=== PATIENT | male | born 1935 | race Caucasian/White ===

== ENCOUNTER 2020-05-21 03:15 | Inpatient (IN) | payer OTHER ==
[~2020-05-21] VITALS: Ht 170.2 cm; Wt 65.7 kg
[2020-05-21] MEDS ORDERED: methylPREDNISolone SOD SUCC 125 MG/2 ML VL IV ONE (04:00)
[2020-05-21 04:25] LABS: Basophils # (auto) 0 10 ^3/uL (0-0.2); Basophils % (auto) 0.8 % (0.0-2.0); Eosinophils # (auto) 0.1 10 ^3/uL (0-0.8); Eosinophils % (auto) 2.6 % (0.0-7.0); Hematocrit 37.1 % (41.0-53.0); Hemoglobin 12.5 g/dL (13.5-17.5); Lymphocytes # (auto) 1.7 10 ^3/uL (0.4-5.4); Mean Corpuscular Hemoglobin 31.7 pg (28.0-32.0); Mean Corpuscular Hgb Conc. 33.8 g/dL (32.0-36.0); Monocytes # (auto) 0.3 10 ^3/uL (0-1.3); Neutrophils # (auto) 2.2 10 ^3/uL (1.6-8.6); Neutrophils % (auto) 50.6 % (37.0-80.0); Nucleated Red Blood Cells % 0.1 %; Platelet Count (auto) 121 10^3/uL (140-450); Red Blood Cells 3.95 10^6/uL (4.5-5.90); Red Cell Distribution Width 13.6 % (11.8-14.3); White Blood Cell 4.3 10^3/uL (4.4-10.8)
[2020-05-21 04:49] LABS: INR 1.13 (0.9-1.15); Partial Thromboplastin Time 25.1 sec (23.0-31.2)
[2020-05-21 05:25] LABS: Bilirubin, Total 0.8 mg/dL (0.2-1.0); Calcium 8.7 mg/dL (8.5-10.1); Magnesium 2.4 mg/dL (1.6-2.6)
[2020-05-21 05:47] LABS: Potassium 4.1 mmol/L (3.5-5.1)
[2020-05-21 08:37] LABS: Urine Bacteria FEW /hpf (None Seen); Urine Blood TRACE /uL (Negative); Urine Mucus FEW (None Seen); Urine WBC 1 /hpf (0 - 3)
[2020-05-21 11:44] VITALS: BP 122/63
[2020-05-21] MEDS ORDERED: DOXYCYCLINE 100MG/250ML 250 ML IV ONE (12:45)
[2020-05-21] MEDS ORDERED: ALBUTEROL SULF HFA 90MCG INH 200DOSE IN SCH (14:00)
[2020-05-21] MEDS ORDERED: NITROGLYCERIN 0.4 MG SL TAB SL PRN (14:00)
[2020-05-21] MEDS ORDERED: ONDANSETRON HCL 4 MG/2 ML VIAL IV PRN (14:00)
[2020-05-21] MEDS ORDERED: MORPHINE SULF INJ 2 MG/ML SYRINGE 1ML IV PRN ×2 (14:00)
[2020-05-21] MEDS ORDERED: FUROSEMIDE 20 MG/2 ML VIAL IV ONE (14:00)
[2020-05-21] MEDS ORDERED: ACETAMINOPHEN 500 MG TAB PO PRN (14:00)
[2020-05-21] MEDS: DOXYCYCLINE 100MG/250ML 250 ML IV SCH (21:47)
[2020-05-21] MEDS: DOCUSATE SOD 100 MG CAP PO SCH (22:00)
[2020-05-21] MEDS ORDERED: BUDESONIDE (INHALATION) 180 MCG IH IN SCH (22:00)
[2020-05-22] VITALS (7 sets, daily range): BP systolic 105–144; BP diastolic 50–79
--- NOTE | 2020-05-22 00:38 | NUR ---
Telemetry admit from ER MENDELRICHIE admitted to Telemetry unit after SBAR received. Patient oriented lashonda RN, unit, room, bed, and unit policies regarding patient care and visiting hours. Patient now on continuous telemetry monitoring, tele box #63 and telemetry reading on arrival to unit is SR 69 bpm. Fall and safety precautions in place. Call light within reach and able to use. Patient placed on bedside oxygen 5 L NC, weighed by bedscale and encouraged to call if they need something. All questions and concerns addressed, patient verbalized understanding and in agreement. Will continue to monitor q1h and prn.
--- NOTE | 2020-05-22 02:00 | NUR ---
MED REC INCOMPLETION PATIENT UNABLE TO RECALL MEDICATION INFORMATION OF HOME MEDICATIONS. PATIENT STATES PHARMACY (SEE PREFERRED PHARMACY) HAS LIST OF PATIENT'S MEDICATION. WILL INFORM DAY SHIFT RN TO INQUIRE DURING OPERATING HOURS.
[2020-05-22 06:47] LABS: Basophils # (auto) 0 10 ^3/uL (0-0.2); Basophils % (auto) 0.2 % (0.0-2.0); Eosinophils # (auto) 0 10 ^3/uL (0-0.8); Eosinophils % (auto) 0.6 % (0.0-7.0); Hematocrit 30.5 % (41.0-53.0); Hemoglobin 10.4 g/dL (13.5-17.5); Lymphocytes % (auto) 30.4 % (10.0-50.0); Mean Corpuscular Hemoglobin 32.2 pg (28.0-32.0); Mean Corpuscular Hgb Conc. 34.3 g/dL (32.0-36.0); Mean Corpuscular Volume 93.8 fL (80.0-100.0); Monocytes # (auto) 0.4 10 ^3/uL (0-1.3); Monocytes % (auto) 6.9 % (0.0-12.0); Neutrophils % (auto) 61.9 % (37.0-80.0); Platelet Count (auto) 121 10^3/uL (140-450); Red Blood Cells 3.25 10^6/uL (4.5-5.90); Red Cell Distribution Width 13.4 % (11.8-14.3); White Blood Cell 6.4 10^3/uL (4.4-10.8)
[2020-05-22 07:08] LABS: Albumin 2.4 g/dL (3.4-5.0); BUN/Creatinine Ratio 25.5; Bilirubin, Total 0.4 mg/dL (0.2-1.0); Calcium 8.1 mg/dL (8.5-10.1); Potassium 4.1 mmol/L (3.5-5.1); Total Protein 6.6 g/dL (6.4-8.2)
[2020-05-22 07:28] LABS: CRP High Sensitivity 1.53 mg/dL (< 0.3)
[2020-05-22] MEDS: DOCUSATE SOD 100 MG CAP PO SCH ×2 (09:10→22:11)
[2020-05-22] MEDS: DexAMETHasone SOD PHOS 10MG/1ML VIAL INJ IV SCH ×2 (09:10→09:29)
[2020-05-22] MEDS: ENOXAPARIN SOD 40 MG/0.4 ML SYRINGE SC SCH (09:12)
[2020-05-22] MEDS: DOXYCYCLINE 100MG/250ML 250 ML IV SCH ×2 (09:14→22:11)
--- NOTE | 2020-05-22 09:15 | NUR ---
Patient ambulated to bathroom and back to bed. Scheduled medications given per order. Patient stable at this time.
--- NOTE | 2020-05-22 09:30 | NUR ---
Patient out-of-bed to chair. Patient stable.
[2020-05-22] MEDS ORDERED: ASCORBIC ACID 1,000 MG TAB PO SCH (10:00)
[2020-05-22] MEDS ORDERED: ZINC SULFATE 220mg CAP or TAB PO SCH (10:00)
[2020-05-22] MEDS ORDERED: CHOLECALCIFEROL (VITD3) 2,000 UNIT CAP PO SCH (10:00)
--- NOTE | 2020-05-22 10:15 | NUR ---
Patient sitting in chair at bedside with no complaint of pain or discomfort. Patient stable.
--- NOTE | 2020-05-22 10:41 | NUR ---
Nutrition Consult for constipation Resolved- pt reports BM today Est energy needs 1682-5450 kcal (25-30 kcal/kg BW 66.7kg) Est protein needs 53-67g (0.8-1g/kg BW 66.7kg) Will monitor and reassess prn. Addendum: 05/22/20 at [address] Amended: Links added.
--- NOTE | 2020-05-22 12:20 | NUR ---
Patient sitting in bed; eating dinner. No distress noted; denies any pain at this time. Patient stable.
[2020-05-22] MEDS: ALBUTEROL SULF 2.5 MG/0.5ML(0.5%) NEB SOLN NEB SCH ×2 (13:15→18:59)
--- NOTE | 2020-05-22 16:20 | NUR ---
Patient asleep with no distress noted at this time. Patient stable.
[2020-05-22] MEDS: FUROSEMIDE 20 MG/2 ML VIAL IV SCH (17:52)
--- NOTE | 2020-05-22 17:52 | NUR ---
Scheduled medications given per order. Patient eating dinner at this time. Patient stable.
[2020-05-22] MEDS ORDERED: TAMSULOSIN HYDROCHLORIDE 0.4 MG CAP PO SCH (18:00)
--- NOTE | 2020-05-22 19:00 | NUR ---
OPENING NOTE- NOC SHIFT RECEIVED REPORT FROM DAY SHIFT NURSE FLAKITO ROBERTS. PATIENT IS ALERT AND ORIENTED X4, ANSWERS IN COMPLETE SENTENCES AND MAKES APPROPRIATE EYE CONTACT. PATIENT IS IN BED, BED IS LOCKED AT LOWEST POSITION, BED RAILS UP X2 AND HEAD OF BED IS UP >30 DEGREES. BEDSIDE TABLE WITHIN REACH, CALL LIGHT WITHIN REACH. DISCUSSED POC WITH PATIENT AND INSTRUCTED PATIENT TO CALL PRN; PATIENT VERBALIZED UNDERSTANDING. PATIENT IS ON 4L NC SAT IS 92%. PATIENT STATES THAT HE IS UNCOMFORTABLE WITH PATIENT IN BED A BECAUSE HE IS LOUD AND STATES THAT HE HAS NOT BEEN ABLE TO SLEEP IN 48HRS. PATIENT REQUESTS TO BE TRANSFERRED TO A DIFFERENT ROOM; WILL REQUEST ROOM CHANGE WITH CHARGE NURSE.
--- NOTE | 2020-05-22 20:00 | NUR ---
PATIENT TRANSFERRED TO 276[facility] PATIENT WAS TRANSFERRED PER PATIENT REQUEST. CHARGE NURSE STANLEY ROBERTS IS AWARE. ALL BELONGINGS WITH PATIENT. PATIENT AMBULATED INDEPENDENTLY TO [facility]A; STEADY GAIT NOTED.
[2020-05-22] MEDS: POTASSIUM CHL 10 Meq TABLET PO SCH (22:11)
[2020-05-23] VITALS (9 sets, daily range): BP systolic 99–116; BP diastolic 37–71
--- NOTE | 2020-05-23 05:30 | NUR ---
PATIENT IN RESTROOM; AMBULATED INDEPENDENTLY, STEADY GAIT NOTED.
[2020-05-23] MEDS: FUROSEMIDE 20 MG/2 ML VIAL IV SCH (06:00)
--- NOTE | 2020-05-23 06:00 | NUR ---
PATIENT REFUSED LASIX EDUCATED PATIENT REGARDING IMPORTANCE OF LASIX FOR HIS HEALTH CONDITION. PATIENT STATES THAT LASIX INHIBITS HIS STEADY URINE FLOW AND THAT HE IS ABLE TO HAVE A BETTER FLOW WITH OUT IT. WILL ENDORSE FOLLOW UP TO DAY SHIFT NURSE FLAKITO ROBERTS.
[2020-05-23 06:23] LABS: Basophils # (auto) 0 10 ^3/uL (0-0.2); Basophils % (auto) 0.6 % (0.0-2.0); Eosinophils # (auto) 0.1 10 ^3/uL (0-0.8); Eosinophils % (auto) 2.9 % (0.0-7.0); Hematocrit 34.5 % (41.0-53.0); Hemoglobin 11.5 g/dL (13.5-17.5); Lymphocytes # (auto) 2.1 10 ^3/uL (0.4-5.4); Lymphocytes % (auto) 42.5 % (10.0-50.0); Mean Corpuscular Hemoglobin 31.4 pg (28.0-32.0); Mean Corpuscular Hgb Conc. 33.4 g/dL (32.0-36.0); Mean Corpuscular Volume 94.2 fL (80.0-100.0); Monocytes # (auto) 0.4 10 ^3/uL (0-1.3); Monocytes % (auto) 8.5 % (0.0-12.0); Neutrophils # (auto) 2.2 10 ^3/uL (1.6-8.6); Neutrophils % (auto) 45.5 % (37.0-80.0); Nucleated Red Blood Cells % 0.1 %; Platelet Count (auto) 122 10^3/uL (140-450); Red Blood Cells 3.66 10^6/uL (4.5-5.90); Red Cell Distribution Width 13.5 % (11.8-14.3); White Blood Cell 4.9 10^3/uL (4.4-10.8)
[2020-05-23 06:33] LABS: Potassium 3.7 mmol/L (3.5-5.1)
[2020-05-23] MEDS: ALBUTEROL SULF 2.5 MG/0.5ML(0.5%) NEB SOLN NEB SCH ×2 (06:40→13:03)
[2020-05-23 06:54] LABS: BUN/Creatinine Ratio 22.8; Calcium 8.1 mg/dL (8.5-10.1)
--- NOTE | 2020-05-23 07:15 | NUR ---
CLOSING NOTE- NOC SHIFT ENDORSED PATIENT CARE TO DAY SHIFT NURSE FLAKITO ROBERTS. PATIENT IS COMFORTABLE IN BED. NO S/SX OF DISTRESS, SOB OR PAIN
--- NOTE | 2020-05-23 08:40 | NUR ---
Patient resting quietly in bed with no complaint of pain or discomfort. Patient stable at this time.
[2020-05-23] MEDS: ENOXAPARIN SOD 40 MG/0.4 ML SYRINGE SC SCH (09:11)
[2020-05-23] MEDS: DOCUSATE SOD 100 MG CAP PO SCH (09:11)
[2020-05-23] MEDS: DOXYCYCLINE 100MG/250ML 250 ML IV SCH (09:11)
[2020-05-23] MEDS: POTASSIUM CHL 10 Meq TABLET PO SCH (09:11)
--- NOTE | 2020-05-23 09:12 | NUR ---
Scheduled medications given per order. Patient resting comfortably in bed at this time. Patient stable.
--- NOTE | 2020-05-23 10:25 | NUR ---
Patient resting comfortably in bed with Dr. Zarco at bedside.
[2020-05-23] MEDS ORDERED: FUROSEMIDE 20 MG/2 ML VIAL IV ONE (10:30)
--- NOTE | 2020-05-23 10:40 | NUR ---
Patient refused IV lasix. Called and left message to inform Dr. Estrada.
--- NOTE | 2020-05-23 12:50 | NUR ---
Patient ambulated to bathroom and back to bed. Patient stable at this time.
--- NOTE | 2020-05-23 12:55 | NUR ---
Patient taken via wheelchair to [facility] Dept for thoracentesis.
--- NOTE | 2020-05-23 13:30 | NUR ---
THORACENTESIS PATIENT UNDERWENT RIGHT THORACENTESIS PER DR CAPPS IN .S DEPT UNDER LOCAL ANESTHETIC. SEE FLOW SHEET FOR VS. 2300 ML DK JOYCELYN LIQUID DRAINED. PATIENT TOLERATED WELL. XEROFORM DRSG APPLIED TO RIGHT BACK AND COVERED WITH TEGADERM DRSG. NO BLEEDING OR HEMATOMA NOTED AT SITE. REPORT CALLED TO FLAKITO ROBERTS. PLEURAL FLUID TAKEN TO LAB FOR ORDERED TESTING. CXR ORDERED FOR [address] CAPPS'S ORDERS. PATIENT RETURNED TO ROOM PER IN STABLE CONDITION WITH O2 ON @ 4L PER NC PRIOR TO PROCEDURE.
--- NOTE | 2020-05-23 13:50 | NUR ---
Patient returned to unit via wheelchair in stable condition. Addendum: 05/23/20 at 1352 by FLAKITO ECKERT RN RN Dr. Pérez at bedside. Addendum: 05/23/20 at 1401 by FLAKITO ECKERT RN RN Thoracentesis: 2300mls drained from right posterior back.
--- NOTE | 2020-05-23 15:15 | NUR ---
Patient sitting on side of bed with Dr. Estrada at bedside. Patient stable at this time.
--- NOTE | 2020-05-23 15:27 | NUR ---
assessment re: ss consult inadequate support system Patient is a 84 year old male who is alert and oriented. Patients cognitive abilities are intact. Patients emotional state is stable. Prior to admission patient lived home alone and functioned independently. Patient informed me he is able to care for his own ADLs. Per patient he will return home to his prior living arrangements post discharge and will have transport home. Patient informed me he has no need for DME. Patient informed me he has no family and does not want to list an emergency contact. Patient informed me he has no needs or concerns. Patient informed me he feels safe returning home on discharge. Patient has no post discharge needs at this time. I informed patient he has a right to speak to a social security specialist regarding all care. I informed patient he has a right to participate in any and all discharge planning. Patient has a POA and advanced directive. Patient verbalized understanding and agreed to discharge plan home. Addendum: 05/23/20 at 1530 by Nhung WELLS Amended: Links added.
--- NOTE | 2020-05-23 15:50 | NUR ---
Discharge instructions / discharge Both written and verbal post-thoracentesis discharge instructions given to patient as ordered. Encourage to follow up with PMD and pharmaceutical process engineer as instructed. All questions and concerns addressed. Patient verbalized understanding. Medication reconciliation form completed and copy given to patient. Peripheral IV removed intact with minimal bleeding; pressure dressing applied to site. Telemetry unit returned to ICU. Patient taken to vehicle via wheelchair with all personal belongings, accompanied by staff. No distress noted at time of departure.
== END 2020-05-23 15:50 | disposition home or self-care (01) | DRG 186 ==
LOC: ER 03:15 → EDBD 03:15 → TELE 03:16 → TELE-WESTW 05-22 00:55
PROVIDERS: ADMIT Hospitalist; ATTEND Hospitalist
PROC: 0W993ZZ Drainage of Right Pleural Cavity, Percutaneous Approach (ICD-10-PCS; principal; 2020-05-23)
PROC: 5A09357 Assistance with Respiratory Ventilation, Less than 24 Consecutive Hours, Continuous Positive Airway Pressure (ICD-10-PCS; 2020-05-23)
DX: J90 Pleural effusion, not elsewhere classified (principal); J18.9 Pneumonia, unspecified organism; J96.21 Acute and chronic respiratory failure with hypoxia; I21.4 Non-ST elevation (NSTEMI) myocardial infarction; R18.8 Other ascites; I31.3 Pericardial effusion (noninflammatory); I50.32 Chronic diastolic (congestive) heart failure; J98.11 Atelectasis; F12.90 Cannabis use, unspecified, uncomplicated; I11.0 Hypertensive heart disease with heart failure; N40.1 Benign prostatic hyperplasia with lower urinary tract symptoms; Z20.828 Contact with and (suspected) exposure to other viral communicable diseases
CPT/HCPCS: 10022; 36415; 36600; 71045; 71250; 74176; 76604; 76942; 80048; 80053; 81001; 82728; 82805; 83605; 83735; 83880; 83986; 84443; 84484; 85025; 85379; 85610; 85730; 86141; 86710; 87040; 87070; 87086; 87205; 87426; 87804; 89051; 93005; 93306; 94640; 94660; 96365; 96366; 96375; G0378; J1100; J3490

== ENCOUNTER → 2020-12-23 | Outpatient (CLI) | payer OTHER | END | disposition home or self-care (01) | LOC: US 09:16 | DX: K76.89 Other specified diseases of liver (principal); J90 Pleural effusion, not elsewhere classified; K74.60 Unspecified cirrhosis of liver | CPT/HCPCS: 76700 ==

== ENCOUNTER 2025-01-12 17:04 | Emergency (ER) | payer OTHER ==
[~2025-01-12] VITALS: Ht 172.7 cm; Wt 66.9 kg
[2025-01-12 17:15] VITALS: BP 146/66; PULSE 64; RESP 17; TEMP 97.4; O2SAT 97
[2025-01-12 18:01] LABS: Hematocrit 37.7 % (41.0-53.0); Hemoglobin 12.9 g/dL (13.5-17.5); Mean Corpuscular Hemoglobin 34.0 pg (28.0-32.0); Mean Corpuscular Volume 99.5 fL (80.0-100.0); Nucleated Red Blood Cells % 0.0 %
[2025-01-12 18:07] LABS: Potassium 3.9 mmol/L (3.5-5.1); Sodium 141 mmol/L (136-145)
[2025-01-12 18:08] LABS: Anion Gap 7 (5-15); Calcium 9.6 mg/dL (8.7-10.4); Carbon Dioxide 26 mmol/L (20-31)
[2025-01-12 18:13] LABS: BUN/Creatinine Ratio 17.4 (10.0-20.0); Chloride 108 mmol/L (98-107)
[2025-01-12 18:16] LABS: Blood Urea Nitrogen 25 mg/dL (9-23); Glucose 115 mg/dL (74-106)
--- NOTE | 2025-01-12 18:23 | ED.PDOC ---
History of Present Illness HPI Comments Patient is a 89-year-old male with a past medical history of hypothyroidism, prostatomegaly, dysphagia presented to the ER with a chief complaint of swelling noticed on the extensor surface of his right forearm. Patient reported at night he was apparently well and in the morning noticed to have reddish swelling of the extensor surface of his right forearm but denied any pain or tenderness, normal range of motion of the right hand and the forearm. Patient reported about properly having spider bite overnight or a cat bite but no visible wounds were seen in the area was clean and skin was intact. Chief Complaint: Bite Time Seen by MD: 17:39 Allergies: Uncoded Allergies: PEANUT (Allergy, Unknown, 05/21/20) SHELLFISH (Allergy, Unknown, 05/21/20) Home Meds No Active Prescriptions or Reported Meds Mode of Arrival: Ambulatory Past Medical History PAST MEDICAL HISTORY: Thyroid Past Medical History (Other): BPH, dysphagia Surgical History: Denies all surgeries Family History Family History: Reviewed,noncontributory to illness Social History Smoker: Non-Smoker Alcohol: Denies ETOH Use Drugs: Denies Drug Use Lives In: Home Constitutional: denies: chills, diaphoresis, fatigue, fever, malaise, sweats, weakness, others EENTM: denies: blurred vision, double vision, ear bleeding, ear discharge, ear drainage, ear pain, ear ringing, eye pain, eye redness, hearing loss, mouth pain, mouth swelling, nasal discharge, nose bleeding, nose congestion, nose pain, photophobia, tearing, throat pain, throat swelling, voice changes, others Respiratory: denies: cough, hemoptysis, orthopnea, SOB at rest, shortness of breath, SOB with excertion, stridor, wheezing, others Cardiovascular: denies: chest pain, dizzy spells, diaphoresis, Dyspnea on exertion, edema, irregular heart beat, left arm pain, lightheadedness, palpitations, PND, syncope, others Gastrointestinal: denies: abdomen distended, abdominal pain, blood streaked bowels, constipated, diarrhea, dysphagia, difficulty swallowing, hematemesis, melena, nausea, poor appetite, poor fluid intake, rectal bleeding, rectal pain, vomiting, others Genitourinary: denies: burning, dysuria, flank pain, frequency, hematuria, incontinence, penile discharge, penile sore, pain, testicle pain, testicle swelling, urgency, others Neurological: denies: dizziness, fainting, headache, left sided numbness, left sided weakness, numbness, paresthesia, pre-existing deficit, right sided numbness, right sided weakness, seizure, speech problems, tingling, tremors, weakness, others Musculoskeletal: denies: back pain, gout, joint pain, joint swelling, muscle pain, muscle stiffness, neck pain, others Integumetry: reports: bruises, change in color (Az measuring about) Allergic/Immunocompromised: denies: Difficulty Healing, Frequent Infections, Hives, Itching, others Hematologic/Lymphatic: denies: anemia, blood clots, easy bleeding, easy bruising, swollen glands, others Endocrine: denies: excessive hunger, excessive sweating, excessive thirst, excessive urination, flushing, intolerance to cold, intolerance to heat, unexplained weight gain, unexplained weight loss, others Psychiatric: denies: anxiety, bipolar disorder, depression, hopeless, panic disorder, schizophrenia, sleepless, suicidal, others Physical Exam General Appearance: No Apparent Distress, Normal HEENT: Normal ENT Inspection, Pharynx Normal, TMs Normal Neck: Full Range of Motion, Non-Tender, Normal, Normal Inspection Respiratory: Chest Non-Tender, Lungs Clear, No Accessory Muscle Use, No Respira tory Distress, Normal Breath Sounds Cardiovascular: No Edema, No JVD, No Murmur, No Gallop, Normal Peripheral Pulses, Regular Rate/Rhythm Breast Exam: Deferred Gastrointestinal: No Organomegaly, Non Tender, No Pulsatile Mass, Normal Bowel Sounds, Soft Genitalia: Deferred Pelvic: Deferred Rectal: Deferred Extremities: Other (Right forearm reddish blue swelling on the extensor surface) Neurologic: Alert, surveying crew stake runner II-XII nml as Tested, No Motor Deficits, Normal Affect, Normal Mood, No Sensory Deficits Cerebellar Function: Normal Reflexes: NOT DONE Skin: Bruises Peripheral Pulses: 2+ dorsalis pedis (R), 2+ dorsalis pedis (L), 2+ Radial (R), 2+ Radial (L) Lymphatic: No Adenopathy Was a procedure done? Was a procedure done?: No Differential Dx Considerations may include: Right upper extremity bruise after trauma, cellulitis, coagulopathy, DVT X-Ray, Labs, Meds, VS Vital Signs Date Time Temp Pulse Resp B/P (MAP) Pulse Ox O2 Delivery O2 Flow Rate FiO2 01/12/25 17:15 Room Air* 0 21 01/12/25 17:15 97.4 64 17 146/66 (92) 97 97.4 Lab Test 01/12/25 17:54 Range/Units White Blood Count 5.6 4.4-10.8 10^3/uL Red Blood Count 3.79 L 4.5-5.90 10^6/uL Hemoglobin 12.9 L 13.5-17.5 g/dL Hematocrit 37.7 L 41.0-53.0 % Mean Corpuscular Volume 99.5 80.0-100.0 fL Mean Corpuscular Hemoglobin 34.0 H 28.0-32.0 pg Mean Corpuscular Hemoglobin Concent 34.1 32.0-36.0 g/dL Red Cell Distribution Width 13.3 11.8-14.3 % Platelet Count 133 L 140-450 10^3/uL Mean Platelet Volume 8.3 6.9-10.8 fL Neutrophils (%) (Auto) 52.2 37.0-80.0 % Lymphocytes (%) (Auto) 41.4 10.0-50.0 % Monocytes (%) (Auto) 4.1 0.0-12.0 % Eosinophils (%) (Auto) 1.6 0.0-7.0 % Basophils (%) (Auto) 0.7 0.0-2.0 % Neutrophils # (Auto) 2.9 1.6-8.6 10 ^3/uL Lymphocytes # (Auto) 2.3 0.4-5.4 10 ^3/uL Monocytes # (Auto) 0.2 0-1.3 10 ^3/uL Eosinophils # (Auto) 0.1 0-0.8 10 ^3/uL Basophils # (Auto) 0 0-0.2 10 ^3/uL Nucleated Red Blood Cells 0.0 % Sodium Level 141 136-145 mmol/L Potassium Level 3.9 3.5-5.1 mmol/L Chloride Level 108 H 98-107 mmol/L Carbon Dioxide Level 26 20-31 mmol/L Anion Gap 7 5-15 Blood Urea Nitrogen 25 H 9-23 mg/dL Creatinine 1.44 H 0.700-1.30 mg/dL Glomerular Filtration Rate Calc 46 >90 mL/min BUN/Creatinine Ratio 17.4 10.0-20.0 Serum Glucose 115 H 74-106 mg/dL Calcium Level 9.6 8.7-10.4 mg/dL Patient is a 89-year-old male with a past medical history of hypothyroidism, prostatomegaly came to the ED with a chief complaint of swelling in the right forearm extensor surface face. Patient denied any pain or tenderness, the area had reddish blue discoloration, distal pulses were palpable, no pain on motion of the arm or the hand, normal range of motion of the forearm. Initial labs on BMP showed BERTIN likely on top of CKD. Patient was advised to get admitted and get IV fluids and further workup of his BERTIN and the right extremity swelling, with the patient reported that he is feeling better and would like to go home. Patient left against medical advice but was advised that if the swelling increases in size or if he starts to have pain and tenderness at the site, he was advised to visit the ER. Time of 1ST Reevaluation: 18:46 Reevaluation 1ST: Unchanged Patient Education/Counseling: Diagnosis, Treatment Family Education/Counseling: No Family Present SEPSIS Sepsis Screen Date sepsis recognized/suspect: Jan 12, 2025 Time Sepsis recognized/suspect: 1714 Recent Procedure: No On Antibiotic Therapy: No Respiratory Rate >20: No Heart Rate >90: No Temp<36 C (96.8 F) or >38.3 C: No SBP <90 or MAP <65 mmHG: No New Acute Mental Status Change: No Is the patient on CPAP, BIPAP,: No Physician Orders Heplock Iv (01/12/25 ) Sodium Chloride 0.9% (01/12/25 19:00) PTPTT (01/12/25 18:54) Vital Signs Date Time Temp Pulse Resp B/P (MAP) Pulse Ox O2 Delivery O2 Flow Rate FiO2 01/12/25 17:15 Room Air* 0 21 01/12/25 17:15 97.4 64 17 146/66 (92) 97 97.4 Laboratory Tests Test 01/12/25 17:54 White Blood Count 5.6 10^3/uL (4.4-10.8) Departure 1 Departure Time of Disposition: 19:07 Impression: Primary Impression: Traumatic ecchymosis of right upper arm Additional Impression: Acute kidney injury superimposed on CKD Disposition: 07 LEFT AGAINST MEDICAL ADVICE Condition: Fair e-Prescriptions No Active Prescriptions or Reported Meds Critical Care Note Critical Care Time?: No Stability Stability form required: No Heart Score Heart Score: Heart Score Response (Comments) Value History N/A 0 EKG N/A 0 Age N/A 0 Risk Factors N/A 0 Troponin N/A 0 Total 0 MENG HARRIS RESIDENT Jan 12, 2025 18:23
[2025-01-12] MEDS ORDERED: SODIUM CHLORIDE 0.9% 500 ML IV ONE (19:00)
[2025-01-12 19:31] LABS: INR 1.08 (0.9-1.15); Partial Thromboplastin Time 28.4 SEC (24.5-34.5); Prothrombin Time 11.4 sec (9.3-11.8)
== END 2025-01-12 19:07 | disposition left against medical advice (07) ==
LOC: ER 17:04
DX: S40.021A Contusion of right upper arm, initial encounter (principal); N17.9 Acute kidney failure, unspecified; N18.9 Chronic kidney disease, unspecified; E03.9 Hypothyroidism, unspecified; W55.01XA Bitten by cat, initial encounter; Y93.89 Activity, other specified; Y92.89 Other specified places as the place of occurrence of the external cause; Y99.8 Other external cause status
CPT/HCPCS: 36415; 80048; 85025; 85610; 85730

== ENCOUNTER 2025-02-15 18:41 | Emergency (ER) | payer OTHER ==
[~2025-02-15] VITALS: Ht 172.7 cm; Wt 68.3 kg
[2025-02-15] MEDS ORDERED: CLOT-32 TOP (19:34)
[2025-02-15] MEDS ORDERED: BACDST PO (19:34)
--- NOTE | 2025-02-15 19:34 | ED.PDOC ---
General HPI Comments 89-year-old male presents to ER with complaints of rash x1 month. Patient reports he has been experiencing itchiness/redness to bilateral groin region/testicles x1 month. Denies any pain. Denies use of medications for current symptoms and presents to ER ambulatory on arrival, with steady gait, in no distress. Denies fever, body aches, chills, changes in urination or any further symptoms/complaints Chief Complaint: Rash Time Seen by MD: 18:54 Primary Care Provider: UNKNOWN Reviewed notes: Nurses Notes, Medications, Allergies Allergies: Coded Allergies: NO KNOWN ALLERGIES (Unverified , 02/15/25) Home Meds Active Scripts Sulfamethoxazole W/Trimethopri (Bactrim Ds Tablet) 1 Tab Tb, 1 TAB PO BID for 7 Days, #14 TAB 0 Refills Prov:CAROLA GARCIA 02/15/25 Clotrimazole (Lotrimin Af) 1 % Cre, 1 APPLIC TOP BID for 14 Days, #1 CRE 1 Refill Prov:CAROLA GARCIA 02/15/25 Information Source: Patient Mode of Arrival: Ambulatory Past Medical History PAST MEDICAL HISTORY: Denies Surgical History: Denies all surgeries Family History Family History: Unknown Social History Smoker: Non-Smoker Alcohol: Denies ETOH Use Drugs: Denies Drug Use Lives In: Home Constitutional: denies: chills, diaphoresis, fatigue, fever, malaise, sweats, weakness, others EENTM: denies: blurred vision, double vision, ear bleeding, ear discharge, ear drainage, ear pain, ear ringing, eye pain, eye redness, hearing loss, mouth pain, mouth swelling, nasal discharge, nose bleeding, nose congestion, nose pain, photophobia, tearing, throat pain, throat swelling, voice changes, others Respiratory: denies: cough, hemoptysis, orthopnea, SOB at rest, shortness of breath, SOB with excertion, stridor, wheezing, others Cardiovascular: denies: chest pain, dizzy spells, diaphoresis, Dyspnea on exertion, edema, irregular heart beat, left arm pain, lightheadedness, palpitations, PND, syncope, others Gastrointestinal: denies: abdomen distended, abdominal pain, blood streaked bowels, constipated, diarrhea, dysphagia, difficulty swallowing, hematemesis, melena, nausea, poor appetite, poor fluid intake, rectal bleeding, rectal pain, vomiting, others Genitourinary: denies: burning, dysuria, flank pain, frequency, hematuria, incontinence, penile discharge, penile sore, pain, testicle pain, testicle swelling, urgency, others Neurological: denies: dizziness, fainting, headache, left sided numbness, left sided weakness, numbness, paresthesia, pre-existing deficit, right sided numbness, right sided weakness, seizure, speech problems, tingling, tremors, weakness, others Musculoskeletal: denies: back pain, gout, joint pain, joint swelling, muscle pain, muscle stiffness, neck pain, others Integumetry: reports: others (As stated in HPI) Allergic/Immunocompromised: denies: Difficulty Healing, Frequent Infections, Hives, Itching, others Hematologic/Lymphatic: denies: anemia, blood clots, easy bleeding, easy bruising, swollen glands, others Endocrine: denies: excessive hunger, excessive sweating, excessive thirst, excessive urination, flushing, intolerance to cold, intolerance to heat, unexplained weight gain, unexplained weight loss, others Psychiatric: denies: anxiety, bipolar disorder, depression, hopeless, panic disorder, schizophrenia, sleepless, suicidal, others Physical Exam General Appearance: No Apparent Distress HEENT: PERRL/EOMI Neck: Full Range of Motion, Non-Tender, Normal Respiratory: Chest Non-Tender, Lungs Clear, No Accessory Muscle Use, No Respiratory Distress, Normal Breath Sounds Cardiovascular: No Murmur, No Gallop, Regular Rate/Rhythm Breast Exam: Deferred Gastrointestinal: Non Tender, No Pulsatile Mass, Soft Genitalia: Other (Erythematous patches to scrotum noted without bleeding/drainage/TTP. Remainder of genitalia examination-unremarkable) Pelvic: Deferred Rectal: Deferred Extremities: Normal capillary refill, Normal range of motion Neurologic: Alert, No Motor Deficits, Normal Affect, Normal Mood, No Sensory Deficits Cerebellar Function: Normal Reflexes: Normal Skin: Dry, Warm Lymphatic: No Adenopathy Was a procedure done? Was a procedure done?: No Sedation Sedation?: No Differential Diagnosis Kidney stone (Female): N/A Penile/Scrotal: STD Urinary Problem (Male): Urethritis, Urinary Retention, Other (abscess) X-Ray, Labs, Meds, VS Vital Signs Date Time Temp Pulse Resp B/P (MAP) Pulse Ox O2 Delivery O2 Flow Rate FiO2 02/15/25 18:43 98.3 68 16 141/76 97 98.3 Advised to follow up with PCP in 1-2 days Patient verbalized understanding and agreeable with current plan of care Advised to return to ER immediately if symptoms worsen Time of 1ST Reevaluation: 19:12 Reevaluation 1ST: N/A Patient Education/Counseling: Diagnosis, Treatment, Prognosis, Need For Follow Up Family Education/Counseling: No Family Present SEPSIS Sepsis Screen Date sepsis recognized/suspect: Feb 15, 2025 Time Sepsis recognized/suspect: 1841 Recent Procedure: No On Antibiotic Therapy: No Respiratory Rate >20: No Heart Rate >90: No Temp<36 C (96.8 F) or >38.3 C: No SBP <90 or MAP <65 mmHG: No New Acute Mental Status Change: No Is the patient on CPAP, BIPAP,: No Vital Signs Date Time Temp Pulse Resp B/P (MAP) Pulse Ox O2 Delivery O2 Flow Rate FiO2 02/15/25 18:43 98.3 68 16 141/76 97 98.3 Departure 1 Departure Time of Disposition: 19:32 Impression: Primary Impression: Tinea cruris Disposition: 01 HOME / SELF CARE / HOMELESS Condition: Stable e-Prescriptions Sulfamethoxazole W/Trimethopri (Bactrim Ds Tablet) 1 Tab Tb 1 TAB PO BID for 7 Days, #14 TAB 0 Refills Prov: CAROLA GARCIA 02/15/25 Clotrimazole (Lotrimin Af) 1 % Cre 1 APPLIC TOP BID for 14 Days, #1 CRE 1 Refill Prov: CAROLA GARCIA 02/15/25 Discharged With: Self Critical Care Note Critical Care Time?: No Stability Stability form required: No Heart Score Heart Score: Heart Score Response (Comments) Value History N/A 0 EKG N/A 0 Age N/A 0 Risk Factors N/A 0 Troponin N/A 0 Total 0 CAROLA GARCIA Feb 15, 2025 19:34
[2025-02-15 19:45] VITALS: BP 121/57; PULSE 64; RESP 17; TEMP 97.5; O2SAT 95
== END 2025-02-15 19:55 | disposition home or self-care (01) ==
LOC: ER 18:41 → MERGE 18:41 → ER 19:49
DX: B35.6 Tinea cruris (principal)